=== PATIENT | female | born 1960 | race African-American/Black ===

== ENCOUNTER 2017-11-12 16:06 | Emergency (ER) | payer MEDICAID, OTHER ==
[~2017-11-12] VITALS: Ht 165.1 cm; Wt 64.0 kg
[~2017-11-12 16:06] MED LIST: AMLO10TA80
[2017-11-12] MEDS ORDERED: KETOROLAC 60MG/2ML VIAL IM ONE (20:15)
[2017-11-12] MEDS ORDERED: LIDOCAINE HCL 1% 20ML VIAL (Pyxis) INJ MC ONE (20:15)
[2017-11-12] MEDS ORDERED: TETANUS, DIPHTHERIA, PERTUSSIS VAC/PF 0.5ML (>7YR OLD) IM ONE (20:15)
[2017-11-12] MEDS ORDERED: BACITRACIN ZINC OINT UDPKT TOP ONE (20:15)
[2017-11-12] MEDS ORDERED: CLONIDINE 0.1MG TABLET PO ONE (22:00)
[2017-11-12 22:45] VITALS: BP 194/90
== END 2017-11-12 22:50 | disposition home or self-care (01) ==
LOC: ER 17:33
DX: L02.411 Cutaneous abscess of right axilla (principal); I10 Essential (primary) hypertension; F17.200 Nicotine dependence, unspecified, uncomplicated
CPT/HCPCS: 10060; 90471; 90715; 96372; 99284; J1885; J3490; X7700; Z7610